=== PATIENT | male | born 1940 | race Caucasian/White ===

== ENCOUNTER 2020-05-31 16:03 | Inpatient (IN) | payer MEDICARE ==
[~2020-05-31] VITALS: Ht 182.9 cm; Wt 112.9 kg
[2020-05-31] MEDS ORDERED: CEFTRIAXONE SOD 1 GM/NS 50 ML 50 ML IV ONE ×2 (20:30→23:45)
[2020-05-31 23:55] VITALS: BP 121/64
[2020-06-01] VITALS (24 sets, daily range): BP systolic 84–162; BP diastolic 55–135
[2020-06-01] MEDS: MORPHINE SULFATE INJ 4 MG/ML INJ 1ML IV PRN ×3 (00:47→12:42)
[2020-06-01] MEDS ORDERED: CARVEDILOL3.125 MG PO (01:24)
[2020-06-01] MEDS ORDERED: NAMENDA10 MG PO (01:24)
[2020-06-01] MEDS ORDERED: ALTACE2.5 MG PO (01:24)
[2020-06-01] MEDS ORDERED: NEURONTIN300 MG PO (01:24)
[2020-06-01] MEDS ORDERED: XARELTO20 MG PO (01:24)
[2020-06-01] MEDS ORDERED: TYLENOL # 31 EA PO (01:24)
[2020-06-01] MEDS ORDERED: LEVETIRACETAM500 MG PO (01:24)
[2020-06-01] MEDS ORDERED: ATORVASTATIN CA20 MG PO (01:24)
[2020-06-01] MEDS ORDERED: CLONIDINE HCL0.1 MG PO (01:24)
[2020-06-01] MEDS ORDERED: FLUOXETINE HCL20 MG PO (01:24)
[2020-06-01] MEDS ORDERED: AMIODARONE HCL200 MG PO (01:24)
[2020-06-01] MEDS ORDERED: LEVOTHYROXINE50 MCG PO (01:24)
[2020-06-01] MEDS ORDERED: BACLOFEN20 MG PO (01:24)
[2020-06-01] MEDS ORDERED: CLOPIDOGREL75 MG PO (01:24)
[2020-06-01 07:12] LABS: BASOPHILS % 0.5 % (0.0-1.0); EOSINOPHILS # (AUTO) 0.2 (0.0-0.4); EOSINOPHILS % 2.5 % (0.0-6.0); HEMATOCRIT 28.5 % (38.2-49.6); HEMOGLOBIN 8.3 g/dL (14.0-18.0); LYMPHOCYTES # (AUTO) 2.5 (1.0-3.2); LYMPHOCYTES % 37.5 % (18.0-39.1); MEAN CORPUSCULAR HEMOGLOBIN 29.3 pg (28-32); MEAN CORPUSCULAR HGB CONC 29.1 g/dL (31-35); MEAN CORPUSCULAR VOLUME 100.7 fL (81-99); MONOCYTES # (AUTO) 0.7 (0.2-0.8); MONOCYTES % 10.1 % (4.4-11.3); NEUTROPHILS # (AUTO) 3.2 (2.1-6.9); NEUTROPHILS % 49.1 % (38.7-80.0); PLATELET COUNT 214 x10e3/uL (140-360); RED BLOOD COUNT 2.83 x10e6/uL (4.3-5.7); RED CELL DISTRIBUTION WIDTH 16.8 % (11.7-14.4)
[2020-06-01 07:35] LABS: ANION GAP 11.3 mmol/L (8-16); BLOOD UREA NITROGEN 11 mg/dL (7-26); BUN/CREATININE RATIO 13 (6-25); CALCIUM 8.1 mg/dL (8.4-10.2); CARBON DIOXIDE 25 mmol/L (22-29); CHLORIDE 109 mmol/L (98-107); CREATININE, SERUM 0.87 mg/dL (0.72-1.25); EST GLOMERULAR FILTRATION RATE > 60 ML/MIN (60-); GLUCOSE 88 mg/dL (74-118); POTASSIUM 4.3 mmol/L (3.5-5.1); SODIUM 141 mmol/L (136-145)
[2020-06-01] MEDS: ONDANSETRON HCL INJ 2MG/ML 2ML 2 MG/ML VIAL IV PRN ×2 (08:40→12:42)
[2020-06-01] MEDS ORDERED: ACETAMINOPHEN 325 MG TAB PO PRN (10:00)
[2020-06-01] MEDS ORDERED: CLONIDINE HCL 0.1 MG TAB PO PRN (10:00)
[2020-06-01] MEDS: LEVOTHYROXINE SODIUM 75 MCG TAB PO SCH (10:30)
[2020-06-01] MEDS: LEVETIRACETAM 500 MG TAB PO SCH ×2 (10:45→17:00)
[2020-06-01] MEDS: PIPER-TAZ 3.375 GM 50 ML IV SCH ×3 (12:42→23:59)
[2020-06-01] MEDS: DEXTROSE 5%/0.9% SOD CHL 1,000 ML IV SCH (14:00)
[2020-06-01 14:07] LABS: CLARITY,URINE CLEAR (CLEAR); COLOR,URINE YELLOW (YELLOW)
[2020-06-01 14:08] LABS: KETONES,URINE NEGATIVE (NEGATIVE); LEUKOCYTE ESTERASE ,URINE NEGATIVE (NEGATIVE); NITRITE,URINE NEGATIVE (NEGATIVE); PROTEIN,URINE DIPSTICK TRACE (NEGATIVE); URINE UROBILINOGEN 0.2 mg/dL (0.2 - 1)
[2020-06-01 14:17] LABS: BACTERIA,URINE MODERATE /HPF; EPITHELIAL CELLS,URINE FEW /LPF; RBC,URINE 0-5 /HPF (0-5); WBC,URINE (MAN) 0-5 /HPF (0-5)
[2020-06-01 14:18] LABS: HYALINE CASTS 0-1 (0-1); MUCUS,URINE FEW (RARE)
[2020-06-01] MEDS: GABAPENTIN 300 MG CAP PO SCH ×2 (15:00→21:00)
[2020-06-01] MEDS: BACLOFEN 10 MG TAB PO SCH ×2 (15:00→21:00)
[2020-06-01] MEDS: NOREPINEPHRINE 8 MG/D5W 250 ML 250 ML IV SCH (15:15)
[2020-06-01] MEDS ORDERED: FUROSEMIDE INJ 100 MG in SODIUM CHLORIDE 0.9% 100 ML 90 ML IV SCH (15:15)
[2020-06-01] MEDS: CARVEDILOL 3.125 MG TAB PO SCH (17:00)
[2020-06-01] MEDS: LINEZOLID 600 MG/D5W 300ML 300 ML IV SCH ×2 (17:41→19:37)
[2020-06-01] MEDS: SODIUM CHLORIDE 0.9% 1000ML 1,000 ML IV SCH ×2 (17:41)
[2020-06-01 20:29] LABS: ALBUMIN 2.8 g/dL (3.5-5.0); BILIRUBIN,DIRECT 0.3 mg/dL (0.0-0.5)
[2020-06-01] MEDS: ATORVASTATIN 20 MG TAB PO SCH (21:00)
[2020-06-01 23:41] LABS: ABG HCO3 28 mmol/L (22-26); ABG PCO2 49 mmHg (35-45); ABG PH 7.37 (7.35-7.45); ABG PO2 101 mmHg (80-105); ABG TCO2 30
[2020-06-02] VITALS (29 sets, daily range): BP systolic 86–144; BP diastolic 54–89
[2020-06-02] MEDS: DEXTROSE 5%/0.9% SOD CHL 1,000 ML IV SCH ×2 (01:30→14:30)
[2020-06-02] MEDS: LINEZOLID 600 MG/D5W 300ML 300 ML IV SCH ×2 (04:57→16:31)
[2020-06-02] MEDS: LEVOTHYROXINE SODIUM 75 MCG TAB PO SCH (06:00)
[2020-06-02] MEDS ORDERED: IOPAMIDOL 370 MG/ML 200 ML INFUS..BTL INJ ONE (06:39)
[2020-06-02] MEDS: PIPER-TAZ 3.375 GM 50 ML IV SCH ×4 (06:54→23:46)
[2020-06-02] MEDS: AMIODARONE HCL 200 MG TAB PO SCH (09:00)
[2020-06-02] MEDS: RAMIPRIL 2.5 MG CAP PO SCH (09:00)
[2020-06-02] MEDS: CARVEDILOL 3.125 MG TAB PO SCH ×2 (09:00→17:00)
[2020-06-02] MEDS ORDERED: POTASSIUM CHLORIDE 20 MEQ TAB CR PO SCH (09:00)
[2020-06-02] MEDS: FLUOXETINE HCL 20 MG CAP PO SCH (09:00)
[2020-06-02] MEDS: CLOPIDOGREL BISULFATE 75 MG TAB PO SCH (09:00)
[2020-06-02] MEDS: GABAPENTIN 300 MG CAP PO SCH ×3 (09:00→20:02)
[2020-06-02] MEDS: MEMANTINE 10 MG TAB PO SCH (09:00)
[2020-06-02] MEDS: LEVETIRACETAM 500 MG TAB PO SCH ×2 (09:00→17:00)
[2020-06-02] MEDS: BACLOFEN 10 MG TAB PO SCH ×3 (09:00→20:01)
[2020-06-02] MEDS ORDERED: RIVAROXABAN 20 MG TABLET PO SCH (09:00)
[2020-06-02] MEDS ORDERED: FUROSEMIDE INJ 10 MG/ML 2 ML VIAL IV SCH (09:00)
[2020-06-02] MEDS: MORPHINE SULFATE INJ 4 MG/ML INJ 1ML IV PRN (09:41)
[2020-06-02 10:16] LABS: ANION GAP 15.2 mmol/L (8-16); CREATININE, SERUM 1.2 mg/dL (0.72-1.25); POTASSIUM 4.2 mmol/L (3.5-5.1)
[2020-06-02] MEDS: BALSAM PERU/CASTOR OIL 60 GM OINT...G. TP SCH (10:48)
[2020-06-02] MEDS: SODIUM CHLORIDE 0.9% 1000ML 1,000 ML IV SCH (12:40)
[2020-06-02] MEDS ORDERED: HYDRALAZINE HCL 20 MG/ML VIAL IV PRN (15:00)
[2020-06-02] MEDS: NOREPINEPHRINE 8 MG/D5W 250 ML 250 ML IV SCH (15:15)
[2020-06-02] MEDS: LEVETIRACETAM 500MG/5ML VIAL 500 MG in SODIUM CHLORIDE 0.9% 100 ML 100 ML IV SCH (16:31)
[2020-06-02] MEDS: HYDROMORPHONE 1MG/1ML INJ IV PRN ×2 (19:55→23:47)
[2020-06-02] MEDS: ENOXAPARIN SOD INJ 60 MG/0.6 ML SYR SC SCH (19:57)
[2020-06-02] MEDS: ATORVASTATIN 20 MG TAB PO SCH (20:02)
[2020-06-03] VITALS (8 sets, daily range): BP systolic 110–131; BP diastolic 59–85
[2020-06-03] MEDS: LINEZOLID 600 MG/D5W 300ML 300 ML IV SCH ×2 (05:20→16:42)
[2020-06-03] MEDS: LEVETIRACETAM 500MG/5ML VIAL 500 MG in SODIUM CHLORIDE 0.9% 100 ML 100 ML IV SCH ×2 (05:20→16:00)
[2020-06-03] MEDS: DEXTROSE 5%/0.9% SOD CHL 1,000 ML IV SCH ×2 (05:20→16:42)
[2020-06-03] MEDS: HYDROMORPHONE 1MG/1ML INJ IV PRN ×2 (05:23→10:10)
[2020-06-03] MEDS: LEVOTHYROXINE SODIUM 75 MCG TAB PO SCH (05:25)
[2020-06-03 06:19] LABS: BASOPHILS % 0.5 % (0.0-1.0); EOSINOPHILS # (AUTO) 0.2 (0.0-0.4); EOSINOPHILS % 5.1 % (0.0-6.0); HEMATOCRIT 24.8 % (38.2-49.6); HEMOGLOBIN 7.3 g/dL (14.0-18.0); LYMPHOCYTES # (AUTO) 1.2 (1.0-3.2); LYMPHOCYTES % 31.5 % (18.0-39.1); MEAN CORPUSCULAR HEMOGLOBIN 28.7 pg (28-32); MEAN CORPUSCULAR HGB CONC 29.4 g/dL (31-35); MEAN CORPUSCULAR VOLUME 97.6 fL (81-99); MONOCYTES # (AUTO) 0.4 (0.2-0.8); MONOCYTES % 11.3 % (4.4-11.3); NEUTROPHILS % 51.3 % (38.7-80.0); PLATELET COUNT 185 x10e3/uL (140-360); RED BLOOD COUNT 2.54 x10e6/uL (4.3-5.7); RED CELL DISTRIBUTION WIDTH 16.6 % (11.7-14.4)
[2020-06-03] MEDS: PIPER-TAZ 3.375 GM 50 ML IV SCH ×4 (06:38→23:56)
[2020-06-03 06:55] LABS: ALANINE AMINOTRANSFERASE 8 IU/L (0-55); ALBUMIN 2.4 g/dL (3.5-5.0); ALBUMIN/GLOBULIN RATIO 0.7 (0.8-2.0); ALKALINE PHOSPHATASE 64 IU/L (40-150); ANION GAP 9.8 mmol/L (8-16); BLOOD UREA NITROGEN 10 mg/dL (7-26); BUN/CREATININE RATIO 10 (6-25); CALCIUM 7.4 mg/dL (8.4-10.2); CARBON DIOXIDE 27 mmol/L (22-29); CHLORIDE 107 mmol/L (98-107); CREATININE, SERUM 0.97 mg/dL (0.72-1.25); EST GLOMERULAR FILTRATION RATE > 60 ML/MIN (60-); GLUCOSE 112 mg/dL (74-118); POTASSIUM 3.8 mmol/L (3.5-5.1); SODIUM 140 mmol/L (136-145)
[2020-06-03] MEDS: AMIODARONE HCL 200 MG TAB PO SCH (09:00)
[2020-06-03] MEDS: GABAPENTIN 300 MG CAP PO SCH ×3 (09:00→19:44)
[2020-06-03] MEDS: RAMIPRIL 2.5 MG CAP PO SCH (09:00)
[2020-06-03] MEDS: LEVETIRACETAM 500 MG TAB PO SCH ×2 (09:00→16:02)
[2020-06-03] MEDS: FLUOXETINE HCL 20 MG CAP PO SCH (09:00)
[2020-06-03] MEDS: CARVEDILOL 3.125 MG TAB PO SCH ×2 (09:00→16:02)
[2020-06-03] MEDS: CLOPIDOGREL BISULFATE 75 MG TAB PO SCH (09:00)
[2020-06-03] MEDS: MEMANTINE 10 MG TAB PO SCH (09:00)
[2020-06-03] MEDS: BACLOFEN 10 MG TAB PO SCH ×3 (09:00→19:43)
[2020-06-03] MEDS: ENOXAPARIN SOD INJ 60 MG/0.6 ML SYR SC SCH ×2 (10:12→20:39)
[2020-06-03 10:38] LABS: HYPOCHROMASIA MODERATE; OVALOCYTES FEW
[2020-06-03 10:39] LABS: ANISOCYTOSIS SLIGHT; PLATELET ESTIMATE ADEQUATE; PLATELET MORPHOLOGY COMMENT NORMAL; POIKILOCYTOSIS SLIGHT
[2020-06-03] MEDS ORDERED: HYDROMORPHONE 1MG/1ML INJ IV ONE (12:45)
[2020-06-03] MEDS: BALSAM PERU/CASTOR OIL 60 GM OINT...G. TP SCH (13:00)
[2020-06-03 14:50] LABS: FERRITIN 177.58 ng/mL (21.81-274.66)
[2020-06-03] MEDS: NOREPINEPHRINE 8 MG/D5W 250 ML 250 ML IV SCH (15:15)
[2020-06-03] MEDS: HYDROMORPHONE 2MG/ML 2 MG/ML ML IV PRN ×2 (16:40→20:38)
[2020-06-03] MEDS: ATORVASTATIN 20 MG TAB PO SCH (19:43)
[2020-06-03] MEDS ORDERED: SODIUM CHLORIDE 0.9% 250ML 250 ML ONE (23:35)
[2020-06-04] VITALS (8 sets, daily range): BP systolic 110–138; BP diastolic 63–87
[2020-06-04] MEDS: HYDROMORPHONE 2MG/ML 2 MG/ML ML IV PRN ×5 (00:48→20:50)
[2020-06-04] MEDS: LEVETIRACETAM 500MG/5ML VIAL 500 MG in SODIUM CHLORIDE 0.9% 100 ML 100 ML IV SCH ×2 (03:36→17:24)
[2020-06-04] MEDS: LINEZOLID 600 MG/D5W 300ML 300 ML IV SCH ×2 (03:36→15:46)
[2020-06-04] MEDS: LEVOTHYROXINE SODIUM 75 MCG TAB PO SCH (06:00)
[2020-06-04] MEDS: DEXTROSE 5%/0.9% SOD CHL 1,000 ML IV SCH ×2 (06:01→16:00)
[2020-06-04] MEDS: PIPER-TAZ 3.375 GM 50 ML IV SCH ×4 (06:01→23:49)
[2020-06-04 06:25] LABS: BASOPHILS % 0.2 % (0.0-1.0); EOSINOPHILS # (AUTO) 0.2 (0.0-0.4); EOSINOPHILS % 3.8 % (0.0-6.0); HEMATOCRIT 23.4 % (38.2-49.6); MEAN CORPUSCULAR HEMOGLOBIN 29.3 pg (28-32); MEAN CORPUSCULAR HGB CONC 29.9 g/dL (31-35); MEAN CORPUSCULAR VOLUME 97.9 fL (81-99); MONOCYTES # (AUTO) 0.5 (0.2-0.8); MONOCYTES % 10.1 % (4.4-11.3); NEUTROPHILS # (AUTO) 2.8 (2.1-6.9); NEUTROPHILS % 62.5 % (38.7-80.0); PLATELET COUNT 206 x10e3/uL (140-360); RED BLOOD COUNT 2.39 x10e6/uL (4.3-5.7); RED CELL DISTRIBUTION WIDTH 16.5 % (11.7-14.4)
[2020-06-04] MEDS ORDERED: SODIUM CHLORIDE 0.9% 250ML 250 ML IV NR (08:45)
[2020-06-04] MEDS: BACLOFEN 10 MG TAB PO SCH ×3 (09:00→20:50)
[2020-06-04] MEDS: CARVEDILOL 3.125 MG TAB PO SCH ×2 (09:00→16:48)
[2020-06-04] MEDS: CLOPIDOGREL BISULFATE 75 MG TAB PO SCH (09:00)
[2020-06-04] MEDS: AMIODARONE HCL 200 MG TAB PO SCH (09:00)
[2020-06-04] MEDS: FLUOXETINE HCL 20 MG CAP PO SCH (09:00)
[2020-06-04] MEDS: LEVETIRACETAM 500 MG TAB PO SCH ×2 (09:00→16:47)
[2020-06-04] MEDS: MEMANTINE 10 MG TAB PO SCH (09:00)
[2020-06-04] MEDS: GABAPENTIN 300 MG CAP PO SCH ×3 (09:00→20:50)
[2020-06-04] MEDS: RAMIPRIL 2.5 MG CAP PO SCH (09:00)
[2020-06-04] MEDS: ENOXAPARIN SOD INJ 60 MG/0.6 ML SYR SC SCH ×2 (09:17→20:50)
[2020-06-04] MEDS: ONDANSETRON HCL INJ 2MG/ML 2ML 2 MG/ML VIAL IV PRN ×2 (13:20→20:50)
[2020-06-04] MEDS: NOREPINEPHRINE 8 MG/D5W 250 ML 250 ML IV SCH (15:15)
[2020-06-04] MEDS: FUROSEMIDE INJ 10 MG/ML 4 ML VIAL IV SCH ×2 (15:44→22:45)
[2020-06-04] MEDS: MUPIROCIN 2% OINT 22 GM TUBE TOP SCH (15:44)
[2020-06-04] MEDS: BALSAM PERU/CASTOR OIL 60 GM OINT...G. TP SCH (15:44)
[2020-06-04] MEDS: ATORVASTATIN 20 MG TAB PO SCH (20:50)
[2020-06-05] VITALS (13 sets, daily range): BP systolic 3–167; BP diastolic 36–101
[2020-06-05] MEDS: ONDANSETRON HCL INJ 2MG/ML 2ML 2 MG/ML VIAL IV PRN ×3 (01:15→09:29)
[2020-06-05] MEDS: HYDROMORPHONE 2MG/ML 2 MG/ML ML IV PRN ×3 (01:15→09:29)
[2020-06-05] MEDS ORDERED: SODIUM CHLORIDE 0.9% 250ML 250 ML ONE (01:18)
[2020-06-05] MEDS: DEXTROSE 5%/0.9% SOD CHL 1,000 ML IV SCH ×2 (04:57→17:42)
[2020-06-05] MEDS: LEVETIRACETAM 500MG/5ML VIAL 500 MG in SODIUM CHLORIDE 0.9% 100 ML 100 ML IV SCH ×2 (04:57→16:00)
[2020-06-05] MEDS: LEVOTHYROXINE SODIUM 75 MCG TAB PO SCH (06:10)
[2020-06-05] MEDS: FUROSEMIDE INJ 10 MG/ML 4 ML VIAL IV SCH ×2 (06:10→14:00)
[2020-06-05] MEDS: LINEZOLID 600 MG/D5W 300ML 300 ML IV SCH ×2 (06:10→16:00)
[2020-06-05] MEDS: PIPER-TAZ 3.375 GM 50 ML IV SCH ×2 (07:40→12:07)
[2020-06-05] MEDS ORDERED: SODIUM CHLORIDE 0.9% 250ML 250 ML IV ONE (08:30)
[2020-06-05] MEDS: AMIODARONE HCL 200 MG TAB PO SCH (09:49)
[2020-06-05] MEDS: GABAPENTIN 300 MG CAP PO SCH ×3 (09:49→20:10)
[2020-06-05] MEDS: MEMANTINE 10 MG TAB PO SCH (09:49)
[2020-06-05] MEDS: ENOXAPARIN SOD INJ 60 MG/0.6 ML SYR SC SCH ×2 (09:49→20:10)
[2020-06-05] MEDS: LEVETIRACETAM 500 MG TAB PO SCH ×2 (09:49→17:00)
[2020-06-05] MEDS: BACLOFEN 10 MG TAB PO SCH ×3 (09:49→20:10)
[2020-06-05] MEDS: CLOPIDOGREL BISULFATE 75 MG TAB PO SCH (09:49)
[2020-06-05] MEDS: RAMIPRIL 2.5 MG CAP PO SCH (09:49)
[2020-06-05] MEDS: FLUOXETINE HCL 20 MG CAP PO SCH (09:49)
[2020-06-05] MEDS: CARVEDILOL 3.125 MG TAB PO SCH ×2 (09:49→17:00)
[2020-06-05] MEDS: MUPIROCIN 2% OINT 22 GM TUBE TOP SCH (09:50)
[2020-06-05] MEDS: BALSAM PERU/CASTOR OIL 60 GM OINT...G. TP SCH (09:50)
[2020-06-05 09:58] LABS: BASOPHILS % 0.2 % (0.0-1.0); EOSINOPHILS # (AUTO) 0.2 (0.0-0.4); EOSINOPHILS % 2.9 % (0.0-6.0); HEMATOCRIT 30.9 % (38.2-49.6); HEMOGLOBIN 9.4 g/dL (14.0-18.0); LYMPHOCYTES # (AUTO) 1.2 (1.0-3.2); LYMPHOCYTES % 22.2 % (18.0-39.1); MEAN CORPUSCULAR HEMOGLOBIN 28.6 pg (28-32); MEAN CORPUSCULAR HGB CONC 30.4 g/dL (31-35); MEAN CORPUSCULAR VOLUME 93.9 fL (81-99); MONOCYTES # (AUTO) 0.5 (0.2-0.8); MONOCYTES % 8.6 % (4.4-11.3); NEUTROPHILS # (AUTO) 3.6 (2.1-6.9); NEUTROPHILS % 65.9 % (38.7-80.0); PLATELET COUNT 183 x10e3/uL (140-360); RED BLOOD COUNT 3.29 x10e6/uL (4.3-5.7); RED CELL DISTRIBUTION WIDTH 16.7 % (11.7-14.4)
[2020-06-05] MEDS ORDERED: SODIUM CHLORIDE 0.9% 1000ML 500 ML IV ONE (16:15)
[2020-06-05] MEDS ORDERED: SODIUM CHLORIDE 0.9% 1000ML 1,000 ML ONE ×2 (16:16→20:00)
[2020-06-05 17:29] LABS: BASOPHILS % 0.3 % (0.0-1.0); EOSINOPHILS % 0.3 % (0.0-6.0); HEMATOCRIT 32.5 % (38.2-49.6); HEMOGLOBIN 9.7 g/dL (14.0-18.0); LYMPHOCYTES # (AUTO) 0.9 (1.0-3.2); LYMPHOCYTES % 14.8 % (18.0-39.1); MEAN CORPUSCULAR HEMOGLOBIN 28.4 pg (28-32); MEAN CORPUSCULAR HGB CONC 29.8 g/dL (31-35); MEAN CORPUSCULAR VOLUME 95.3 fL (81-99); MONOCYTES # (AUTO) 0.3 (0.2-0.8); MONOCYTES % 5.4 % (4.4-11.3); NEUTROPHILS # (AUTO) 4.8 (2.1-6.9); NEUTROPHILS % 78.9 % (38.7-80.0); PLATELET COUNT 219 x10e3/uL (140-360); RED BLOOD COUNT 3.41 x10e6/uL (4.3-5.7)
[2020-06-05] MEDS: MEROPENEM 1GM 100 ML IV SCH (17:42)
[2020-06-05 17:57] LABS: ABG PCO2 70 mmHg (35-45); ABG PH 7.26 (7.35-7.45); ABG PO2 125 mmHg (80-105)
[2020-06-05 17:58] LABS: ABG HCO3 31 mmol/L (22-26); ABG TCO2 33
[2020-06-05] MEDS: NOREPINEPHRINE 8 MG/D5W 250 ML 250 ML IV SCH (18:33)
[2020-06-05] MEDS ORDERED: NALOXONE HCL INJ 0.4 MG/ML AMP IV PRN (18:45)
[2020-06-05] MEDS ORDERED: LACTATED RINGER'S 500 ML IV ONE ×2 (18:45→21:45)
[2020-06-05] MEDS: ATORVASTATIN 20 MG TAB PO SCH (20:10)
[2020-06-05 20:49] LABS: LYMPHOCYTES % (MANUAL) 11 % (19-48); MONOCYTES % (MANUAL) 5 % (3.4-9.0); NEUTROPHILS % (MANUAL) 79 % (40-74)
[2020-06-05 20:50] LABS: HYPOCHROMASIA MODE; PLATELET ESTIMATE ADEQUATE; POLYCHROMASIA FEW; RBC MORPHOLOGY COMMENT NORMAL
[2020-06-05 20:51] LABS: PLATELET MORPHOLOGY COMMENT FEW LARGE
[2020-06-06] VITALS (24 sets, daily range): BP systolic 85–142; BP diastolic 54–82
[2020-06-06] MEDS: MEROPENEM 1GM 100 ML IV SCH ×3 (01:11→17:53)
[2020-06-06] MEDS: LEVETIRACETAM 500MG/5ML VIAL 500 MG in SODIUM CHLORIDE 0.9% 100 ML 100 ML IV SCH ×2 (01:18→12:40)
[2020-06-06 04:28] LABS: BASOPHILS % 0.3 % (0.0-1.0); HEMATOCRIT 28.4 % (38.2-49.6); HEMOGLOBIN 8.8 g/dL (14.0-18.0); LYMPHOCYTES # (AUTO) 2.4 (1.0-3.2); MEAN CORPUSCULAR HEMOGLOBIN 29.3 pg (28-32); MEAN CORPUSCULAR VOLUME 94.7 fL (81-99); MONOCYTES # (AUTO) 0.6 (0.2-0.8); NEUTROPHILS # (AUTO) 6.9 (2.1-6.9); NEUTROPHILS % 69.6 % (38.7-80.0); PLATELET COUNT 215 x10e3/uL (140-360); RED CELL DISTRIBUTION WIDTH 16.2 % (11.7-14.4)
[2020-06-06 04:34] LABS: CLARITY,URINE CLOUDY (CLEAR); COLOR,URINE YELLOW (YELLOW); KETONES,URINE NEGATIVE (NEGATIVE); LEUKOCYTE ESTERASE ,URINE NEGATIVE (NEGATIVE); NITRITE,URINE NEGATIVE (NEGATIVE); PROTEIN,URINE DIPSTICK 1+ (NEGATIVE); URINE UROBILINOGEN 0.2 mg/dL (0.2 - 1)
[2020-06-06 04:41] LABS: BACTERIA,URINE FEW /HPF; EPITHELIAL CELLS,URINE FEW /LPF; RBC,URINE 21-50 /HPF (0-5)
[2020-06-06 04:42] LABS: MUCUS,URINE RARE (RARE)
[2020-06-06 04:50] LABS: ALBUMIN 2.4 g/dL (3.5-5.0); ALBUMIN/GLOBULIN RATIO 0.6 (0.8-2.0); ANION GAP 13.1 mmol/L (8-16); CALCIUM 7.7 mg/dL (8.4-10.2); CREATININE, SERUM 1.28 mg/dL (0.72-1.25); MAGNESIUM 1.4 MG/DL (1.3-2.1); PHOSPHORUS 2.3 MG/DL (2.3-4.7); POTASSIUM 3.1 mmol/L (3.5-5.1)
[2020-06-06] MEDS: LEVOTHYROXINE SODIUM 75 MCG TAB PO SCH (04:59)
[2020-06-06] MEDS: LINEZOLID 600 MG/D5W 300ML 300 ML IV SCH ×2 (04:59→16:36)
[2020-06-06] MEDS ORDERED: POTASSIUM CHLORIDE 20MEQ/100ML 100 ML IV ONE ×2 (05:15→09:00)
[2020-06-06 08:52] LABS: ABG HCO3 32 mmol/L (22-26); ABG PCO2 53 mmHg (35-45); ABG PH 7.39 (7.35-7.45); ABG PO2 226 mmHg (80-105)
[2020-06-06 08:52] LABS: LYMPHOCYTES % (MANUAL) 25 % (19-48); MONOCYTES % (MANUAL) 5 % (3.4-9.0); NEUTROPHILS % (MANUAL) 70 % (40-74)
[2020-06-06 08:53] LABS: ABG TCO2 33
[2020-06-06] MEDS: ENOXAPARIN SOD INJ 60 MG/0.6 ML SYR SC SCH ×2 (09:00→22:35)
[2020-06-06] MEDS: RAMIPRIL 2.5 MG CAP PO SCH (09:00)
[2020-06-06] MEDS ORDERED: FUROSEMIDE INJ 10 MG/ML 4 ML VIAL IV ONE (09:00)
[2020-06-06] MEDS: CARVEDILOL 3.125 MG TAB PO SCH ×2 (09:00→17:54)
[2020-06-06] MEDS: GABAPENTIN 300 MG CAP PO SCH ×3 (09:00→22:35)
[2020-06-06] MEDS: LEVETIRACETAM 500 MG TAB PO SCH (09:00)
[2020-06-06] MEDS: AMIODARONE HCL 200 MG TAB PO SCH (11:34)
[2020-06-06] MEDS: BACLOFEN 10 MG TAB PO SCH ×3 (11:37→22:35)
[2020-06-06] MEDS: MEMANTINE 10 MG TAB PO SCH (11:37)
[2020-06-06] MEDS: CLOPIDOGREL BISULFATE 75 MG TAB PO SCH (11:37)
[2020-06-06] MEDS: FLUOXETINE HCL 20 MG CAP PO SCH (11:37)
[2020-06-06] MEDS: MUPIROCIN 2% OINT 22 GM TUBE TOP SCH (12:21)
[2020-06-06] MEDS: BALSAM PERU/CASTOR OIL 60 GM OINT...G. TP SCH (12:21)
[2020-06-06] MEDS ORDERED: LEVETIRACETAM 500MG/5ML VIAL 500 MG in SODIUM CHLORIDE 0.9% 100 ML 100 ML IV SCH (12:30)
[2020-06-06] MEDS: NOREPINEPHRINE 8 MG/D5W 250 ML 250 ML IV SCH (16:34)
[2020-06-06] MEDS: ATORVASTATIN 20 MG TAB PO SCH (22:35)
[2020-06-07] VITALS (24 sets, daily range): BP systolic 91–127; BP diastolic 50–69
[2020-06-07] MEDS: LEVETIRACETAM 500MG/5ML VIAL 500 MG in SODIUM CHLORIDE 0.9% 100 ML 100 ML IV SCH ×2 (00:54→12:28)
[2020-06-07] MEDS: MEROPENEM 1GM 100 ML IV SCH ×2 (01:15→09:32)
[2020-06-07] MEDS: LINEZOLID 600 MG/D5W 300ML 300 ML IV SCH ×2 (04:03→16:04)
[2020-06-07] MEDS: LEVOTHYROXINE SODIUM 75 MCG TAB PO SCH (05:46)
[2020-06-07 06:16] LABS: BASOPHILS % 0.2 % (0.0-1.0); EOSINOPHILS # (AUTO) 0.2 (0.0-0.4); HEMATOCRIT 26.1 % (38.2-49.6); HEMOGLOBIN 8.1 g/dL (14.0-18.0); LYMPHOCYTES # (AUTO) 1.7 (1.0-3.2); LYMPHOCYTES % 27.8 % (18.0-39.1); MEAN CORPUSCULAR HEMOGLOBIN 29.5 pg (28-32); MEAN CORPUSCULAR VOLUME 94.9 fL (81-99); MONOCYTES # (AUTO) 0.3 (0.2-0.8); MONOCYTES % 5.4 % (4.4-11.3); NEUTROPHILS # (AUTO) 3.8 (2.1-6.9); NEUTROPHILS % 63.3 % (38.7-80.0); PLATELET COUNT 187 x10e3/uL (140-360); RED BLOOD COUNT 2.75 x10e6/uL (4.3-5.7); RED CELL DISTRIBUTION WIDTH 16.7 % (11.7-14.4)
[2020-06-07 06:34] LABS: ALBUMIN 2.2 g/dL (3.5-5.0); ALBUMIN/GLOBULIN RATIO 0.6 (0.8-2.0); CALCIUM 7.6 mg/dL (8.4-10.2); CREATININE, SERUM 1.18 mg/dL (0.72-1.25)
[2020-06-07] MEDS: RAMIPRIL 2.5 MG CAP PO SCH (09:00)
[2020-06-07] MEDS: BACLOFEN 10 MG TAB PO SCH ×3 (09:00→21:00)
[2020-06-07] MEDS: AMIODARONE HCL 200 MG TAB PO SCH ×2 (09:00→13:49)
[2020-06-07] MEDS: CARVEDILOL 3.125 MG TAB PO SCH (09:00)
[2020-06-07] MEDS: MEMANTINE 10 MG TAB PO SCH (09:35)
[2020-06-07] MEDS: FLUOXETINE HCL 20 MG CAP PO SCH (09:35)
[2020-06-07] MEDS: CLOPIDOGREL BISULFATE 75 MG TAB PO SCH (09:35)
[2020-06-07] MEDS: GABAPENTIN 300 MG CAP PO SCH ×3 (09:35→21:00)
[2020-06-07] MEDS: BALSAM PERU/CASTOR OIL 60 GM OINT...G. TP SCH (09:39)
[2020-06-07] MEDS: MUPIROCIN 2% OINT 22 GM TUBE TOP SCH (09:39)
[2020-06-07] MEDS: ENOXAPARIN SOD INJ 60 MG/0.6 ML SYR SC SCH ×2 (09:39→21:40)
[2020-06-07] MEDS ORDERED: POTASSIUM CHLORIDE 20MEQ/100ML 200 ML IV ONE (13:00)
[2020-06-07] MEDS: NOREPINEPHRINE 8 MG/D5W 250 ML 250 ML IV SCH (15:15)
[2020-06-07] MEDS: ATORVASTATIN 20 MG TAB PO SCH (21:00)
[2020-06-07] MEDS ORDERED: FUROSEMIDE INJ 10 MG/ML 4 ML VIAL IV SCH (21:00)
[2020-06-07] MEDS: PIPER-TAZ 3.375 GM 50 ML IV SCH (23:31)
[2020-06-07] MEDS ORDERED: SODIUM CHLORIDE 0.9% 250ML 250 ML ONE (23:43)
[2020-06-08] VITALS: BP_SYST 127; BP_SYST 141; BP_DIAS 72; BP_DIAS 82
[2020-06-08] MEDS: LEVETIRACETAM 500MG/5ML VIAL 500 MG in SODIUM CHLORIDE 0.9% 100 ML 100 ML IV SCH ×2 (00:17→12:45)
[2020-06-08 04:00] VITALS: BP 120/79
[2020-06-08] MEDS: LEVOTHYROXINE SODIUM 75 MCG TAB PO SCH (05:52)
[2020-06-08 07:17] LABS: ANION GAP 13.2 mmol/L (8-16); BLOOD UREA NITROGEN 15 mg/dL (7-26); BUN/CREATININE RATIO 14 (6-25); CALCIUM 7.7 mg/dL (8.4-10.2); CARBON DIOXIDE 32 mmol/L (22-29); CHLORIDE 101 mmol/L (98-107); CREATININE, SERUM 1.07 mg/dL (0.72-1.25); EST GLOMERULAR FILTRATION RATE > 60 ML/MIN (60-); GLUCOSE 96 mg/dL (74-118); POTASSIUM 3.2 mmol/L (3.5-5.1); SODIUM 143 mmol/L (136-145)
[2020-06-08 07:57] VITALS: BP 134/77
[2020-06-08 08:47] VITALS: BP 134/77
[2020-06-08] MEDS: GABAPENTIN 300 MG CAP PO SCH ×2 (09:00→15:00)
[2020-06-08] MEDS: BALSAM PERU/CASTOR OIL 60 GM OINT...G. TP SCH (09:00)
[2020-06-08] MEDS: MUPIROCIN 2% OINT 22 GM TUBE TOP SCH (09:00)
[2020-06-08] MEDS: BACLOFEN 10 MG TAB PO SCH ×2 (09:00→15:00)
[2020-06-08] MEDS: MEMANTINE 10 MG TAB PO SCH (09:00)
[2020-06-08] MEDS: CLOPIDOGREL BISULFATE 75 MG TAB PO SCH (09:00)
[2020-06-08] MEDS: FLUOXETINE HCL 20 MG CAP PO SCH (09:00)
[2020-06-08] MEDS ORDERED: POTASSIUM CHLORIDE 20MEQ/100ML 200 ML IV ONE (11:00)
[2020-06-08] MEDS ORDERED: MAGNESIUM SULFATE 2GM/50ML 50 ML IV ONE ×2 (11:00→15:30)
[2020-06-08 11:55] VITALS: BP 135/90
[2020-06-08] MEDS ORDERED: ONDANSETRON HCL 4 MG ORAL DISINTEGRATING TAB PO PRN (13:00)
[2020-06-08] MEDS: PIPER-TAZ 3.375 GM 50 ML IV SCH (14:00)
[2020-06-08] MEDS ORDERED: ATORVASTATIN 40 MG TAB PO SCH (21:00)
== END 2020-06-08 20:30 | DRG 853 ==
LOC: FSED 16:51 → ERHOLD 20:28 → MED/SURG3 23:20 → ICU 06-05 17:19 → MED/SURG2 06-07 22:55
PROVIDERS: ADMIT Internal Medicine; ATTEND Internal Medicine
PROC: 02HV33Z Insertion of Infusion Device into Superior Vena Cava, Percutaneous Approach (ICD-10-PCS; 2020-06-01)
PROC: 0JBR0ZZ Excision of Left Foot Subcutaneous Tissue and Fascia, Open Approach (ICD-10-PCS; 2020-06-03)
PROC: 5A09557 Assistance with Respiratory Ventilation, Greater than 96 Consecutive Hours, Continuous Positive Airway Pressure (ICD-10-PCS; principal; 2020-06-05)
PROC: 30243N1 Transfusion of Nonautologous Red Blood Cells into Central Vein, Percutaneous Approach (ICD-10-PCS; 2020-06-05)
DX: A41.9 Sepsis, unspecified organism (principal); L89.623 Pressure ulcer of left heel, stage 3; J69.0 Pneumonitis due to inhalation of food and vomit; I50.23 Acute on chronic systolic (congestive) heart failure; G92 Toxic encephalopathy; D62 Acute posthemorrhagic anemia; I69.353 Hemiplegia and hemiparesis following cerebral infarction affecting right non-dominant side; I96 Gangrene, not elsewhere classified; I69.393 Ataxia following cerebral infarction; I69.320 Aphasia following cerebral infarction; Z86.718 Personal history of other venous thrombosis and embolism; Z79.01 Long term (current) use of anticoagulants; I11.0 Hypertensive heart disease with heart failure; I25.10 Atherosclerotic heart disease of native coronary artery without angina pectoris; Z20.822 Contact with and (suspected) exposure to COVID-19; Z95.5 Presence of coronary angioplasty implant and graft; R65.20 Severe sepsis without septic shock; E03.9 Hypothyroidism, unspecified; I48.0 Paroxysmal atrial fibrillation; I73.9 Peripheral vascular disease, unspecified; Z86.711 Personal history of pulmonary embolism; Z88.1 Allergy status to other antibiotic agents; I69.319 Unspecified symptoms and signs involving cognitive functions following cerebral infarction
CPT/HCPCS: 31720; 36415; 36600; 70450; 70551; 71045; 71250; 74230; 80048; 80053; 80076; 81001; 82140; 82553; 82607; 82728; 82746; 82805; 82948; 83036; 83540; 83605; 83735; 83880; 84100; 84443; 84466; 84484; 85025; 86850; 86870; 86880; 86900; 86905; 86920; 86922; 87040; 87071; 87086; 87205; 93005; 93306; 93970; 94660; 97139; 99001; 99251; 99284; J0360; J0696; J1170; J1650; J1940; J2020; J2270; J2310; J2405; J2543; J3475; J3480; J7030; J7042; J7050; J7121; P9016; Q9967; U0002